=== PATIENT | female | born 1980 | race Caucasian/White ===

== ENCOUNTER 2016-07-07 15:04 | Outpatient (CLI) | payer MEDICAID ==
[~2016-07-07] VITALS: Ht 157.5 cm; Wt 77.8 kg
[~2016-07-07 15:04] MED LIST: CA C1TAB60 PO; FERR140T2 PO; PREN1TAB17 PO
[2016-07-07 15:19] VITALS: BP 120/58; PULSE 71; RESP 19; Ht 157.5 cm; Wt 77.8 kg
--- NOTE | 2016-07-07 16:31 | RADRPT ---
PROCEDURE: US OB biophysical profile. CLINICAL INDICATION: decreased movements, vaginal pressure TECHNIQUE: Multiple sonographic images of the pelvis were obtained. The images were reviewed on a PACS workstation. COMPARISON: No prior studies are available for comparison. FINDINGS: There is a single viable intrauterine gestation. Cardiac activity is present with 126 beats per min [place]. There is a vertex presentation. The placenta is fundal. There is no evidence of placental abruption. There is a normal amount of amniotic fluid with an POLO = 13.8 cm. Biophysical profile: movement 2/2 tone 2/2. breathing 2/2 POLO 2/2 Total 10/25 RPTAT: AA . IMPRESSION: Normal biophysical profile. . .Steven Chisholm MD, Date Time Electronically viewed and signed by .Steven Chisholm MD, MD on 07/07/2016 16:31 .S/
--- NOTE | 2016-07-07 16:58 | CONS ---
Date/Time of Note Date/Time of Note DATE: 07/07/16 TIME: 16:50 Consultation Date/Type/Reason Admit Date/Time July 07, 2069 OB triage consult Reason for Consultation This patient is 36 years old 15 para 11 leaving 10 ,premature delivery 1 2 ,with EDC of 07/28/2016 which today makes her 37 weeks . She came to triage area complaining of a pelvic pain, pressure and cramping . she had a history of placenta previa with previous .Her lab tests in the clinic were basically within normal limites: blood type O+, hepatitis B surface antigen and HIV ,RPR, GBS chlamydia and gonorrhea gonorrhea all were negative rubella was positive .She is now on her vitamins and calcium She is a well-developed well-nourished somewhat overweight woman, near term.Her vital signs are normal blood pressure 120/58 pulse rate 71 respiration 18 her Abdomen is soft extremely rare contractions On pelvic examination her cervix is closed long head is high no evidence of rupture of membranes. on the studies that was done her NST is reactive with good variability of the tracing and repeated accelerations no decelerations On ultrasound study the report is , one single viable intrauterine gestation with cardiac heart heartbeat of 126. Fetus is in vertex presentation placenta is fundal no evidence of placenta previa or abruption her biophysical profile was 8/8. POLO of 13.8 cm Constitutional: No chills, No diaphoresis, No disoriented, No febrile, No improved, No no complaints, No other, No poor po, No requiring IVF, No requiring O2 ENT: No bleeding, No congestion, No discharge, No dysphagia, No no complaints, No other, No pain, No sore throat Respiratory: No cough, No no complaints, No other, No pain, No pleuritic pain, No shortness of breath, No sputum, No wheezing Cardiovascular: No chest pain, No edema, No lightheadedness, No no complaints, No orthopenea, No other, No palpitations, No paroxysmal nocturnal dyspnea Gastrointestinal: No blood, No constipation, No decreased appetite, No diarrhea , No flatus, No nausea, No no complaints, No other, No pain, No passing stool, No vomiting Genitourinary: other (As I mentioned on pelvic examination the cervix was closed thick and [place] no evidence of rupture membrane), No bleeding, No discharge, No dysuria, No flank pain, No hematuria, No no complaints Musculoskeletal: No back pain, No bone/joint pain, No neck pain, No no complaints, No other, No restricted range of motion, No swelling Skin: No bruising, No erythema, No laceration, No no complaints, No other, No pruritis, No rash, No skin lesions Lymphatic: No adenopathy, No lymphadema, No no complaints, No other, No tender nodes Psychological: No anxiety, No confusion, No depression, No nl mood/affect, No no complaints, No other, No suicidal Immunologic: No immunodeficiency, No no complaints, No other, No pruritis, No rhinitis, No urticaria Additional Comments Disposition with these finding patient was reassured and was discharged home to be followed in the clinic Social History Smoking Status: Never smoker Exam/Review of Systems Vital Signs Vitals Vital Signs Date Time Temp Pulse Resp B/P Pulse Ox O2 Delivery O2 Flow Rate FiO2 07/07/16 15:19 98.0 71 19 120/58 99 Room Air CHAR LAO MD Jul 07, 2016 16:58
--- NOTE | 2016-07-07 17:04 | TRIAGE ---
OB Triage Datetime Report Generated by CPN: 07/07/2016 17:04 Datetime: 07/07/2016 16:58 Stage of : OB Triage Maternal Assessment Level of Consciousness: Fully Conscious DTR's/Clonus: DTRs 1+ Headache: Denies Breath Sounds, Left: Clear and Equal Breath Sounds, Right: Clear and Equal Nausea/Vomiting: Denies RUQ Epigastric Pain: Denies Labor Evaluation Frequency: X1 Monitor Mode: External Quality: Mild Pattern: Normal: <= 5 Contractions in 10 Minutes Resting Tone [place]: Relaxed Heart Rate FHR Baseline Rate: 135 Monitor Mode: External US Variability: Moderate 6-25 bpm Accelerations: 15X15 Decelerations: None Pain Assessment Pain Scale: 0 Pain Presence: None/Denies Pain Type: N/A Pain Goal: 3 Vaginal Exam Membrane Status: Intact Datetime: 07/07/2016 16:09 Maternal Assessment Level of Consciousness: Fully Conscious DTR's/Clonus: DTRs 1+ Headache: Denies Breath Sounds, Left: Clear and Equal Breath Sounds, Right: Clear and Equal Nausea/Vomiting: Denies RUQ Epigastric Pain: Denies Labor Evaluation Frequency: X1 Monitor Mode: External Quality: Mild Pattern: Normal: <= 5 Contractions in 10 Minutes Resting Tone [place]: Relaxed Heart Rate FHR Baseline Rate: 135 Monitor Mode: External US Variability: Moderate 6-25 bpm Accelerations: 15X15 Decelerations: None Category: Category I Pain Assessment Pain Scale: 0 Pain Presence: None/Denies Pain Type: N/A Pain Goal: 3 Vaginal Exam Membrane Status: Intact Datetime: 07/07/2016 15:29 Maternal Assessment Level of Consciousness: Fully Conscious DTR's/Clonus: DTRs 1+ Headache: Denies Blurred Vision: No Respiratory Effort: Unlabored Breath Sounds, Left: Clear and Equal Breath Sounds, Right: Clear and Equal Nausea/Vomiting: Denies RUQ Epigastric Pain: Denies Facial Edema: None Labor Evaluation Frequency: X2 Monitor Mode: External Duration (sec)2399: 50-70 Quality: Mild Pattern: Normal: <= 5 Contractions in 10 Minutes Resting Tone [place]: Relaxed Heart Rate FHR Baseline Rate: 135 Monitor Mode: External US Variability: Moderate 6-25 bpm Accelerations: 15X15 Decelerations: None Category: Category I Pain Assessment Pain Scale: 0 Pain Presence: None/Denies Pain Type: N/A Pain Goal: 3 Vaginal Exam Membrane Status: Intact Datetime: 07/07/2016 15:24 EGA: 37.0 Datetime: 07/07/2016 15:20 Stage of : OB Triage Datetime: 07/07/2016 15:15 Assessment Type: Triage Maternal Assessment Level of Consciousness: Fully Conscious DTR's/Clonus: DTRs 2+; No Clonus Headache: Denies Blurred Vision: No Respiratory Effort: Unlabored; Regular Rhythm; Equal Expansion Breath Sounds, Left: Clear and Equal Breath Sounds, Right: Clear and Equal Nausea/Vomiting: Denies RUQ Epigastric Pain: Denies Lower Extremities Edema: None Degree: None Upper Extremities Edema: None Degree: None Facial Edema: None Fall Risk Assessment History of Falling: (0) No Secondary Diagnosis: (0) No Ambulatory Aid: (0) Bedrest/Nurse Assist IV Therapy: (0) No Gait: (0) Normal/Bedrest/Immobile Mental Status: (0) Oriented to Own Ability Fall Score: 0 Fall Risk Score Definition: No Risk: No action required Datetime: 07/07/2016 15:09 Stage of : OB Triage Time of Arrival: 07/07/2016 15:09 Arrived By: Ambulatory Arrived From: Home Chief Complaint: PT CAME IN C/O VAGINAL PRESSURE AND CRAMPING SINCE THIS AFTERNOON. DENIES ANY BLE EDING AT THIS TIME AND STATES + FM. PT ASO STATES THAT SHE HAS A LOW LYING PLACENTA THAT ACCORDING T O HER IT HAS BEEN RESOLVED. Movement: Present Contractions: Denies/Absent Rupture of Membranes: Denies Vaginal Bleeding: None Vaginal Discharge: Denies Recent Sexual Intercouse: Denies Abdominal Trauma: Not Applicable Patient Complaints: Cramping Additional Patient Complaints: NONE Time Provider Notified: 07/07/2016 15:20 Provider Notified: TASHIA Initial Plan: NST AND BPP AFTER U/S VE
== END 2016-07-07 17:00 | disposition home or self-care (01) ==
LOC: L-D 15:04 → OBT 15:04
PROVIDERS: ATTEND Obstetrics & Gynecology
DX: O26.893 Other specified pregnancy related conditions, third trimester (principal); O09.523 Supervision of elderly multigravida, third trimester; Z3A.37 37 weeks gestation of pregnancy; E66.3 Overweight; Z68.31 Body mass index [BMI] 31.0-31.9, adult; O09.293 Supervision of pregnancy with other poor reproductive or obstetric history, third trimester; O36.8130 Decreased fetal movements, third trimester, not applicable or unspecified
CPT/HCPCS: 76818; Z7500; G0463

== ENCOUNTER 2016-07-12 09:04 | Outpatient (CLI) | payer MEDICAID ==
[~2016-07-12] VITALS: Ht 157.5 cm; Wt 78.8 kg
[2016-07-12 09:29] VITALS: BP 105/59; PULSE 63; RESP 18; Ht 157.5 cm; Wt 78.8 kg
[2016-07-12] MEDS ORDERED: LACTATED RINGER'S 1,000 ML IV SCH (10:04)
--- NOTE | 2016-07-12 11:56 | TRIAGE ---
OB Triage Datetime Report Generated by CPN: 07/12/2016 11:56 Datetime: 07/12/2016 11:46 Vaginal Exam Dilatation (cms): 1.0 Effacement (%): 60 Station: -3 Exam By: byron shaw Vaginal Bleeding: None Cervix, Consistency: Moderate Cervix, Position: Posterior Datetime: 07/12/2016 11:30 Stage of : OB Triage Maternal Assessment Level of Consciousness: Fully Conscious Labor Evaluation Frequency: 4-9 Monitor Mode: External Duration (sec)2399: 60-100 Quality: Mild Resting Tone [place] [address]: Relaxed Heart Rate FHR Baseline Rate: 135 Monitor Mode: External US Variability: Moderate 6-25 bpm Accelerations: 15X15 Decelerations: None Pain Assessment Pain Scale: 5 Pain Presence: Intermittent Pain Type: Cramping Pain Location: Abdomen Pain Goal: 3 Pain Relief Measures: Comfort Measures Membrane Status: Intact Vaginal Bleeding: None Datetime: 07/12/2016 11:00 Stage of : OB Triage Maternal Assessment Level of Consciousness: Fully Conscious Labor Evaluation Frequency: 2-7 Monitor Mode: External Duration (sec)2399: 60-130 Quality: Mild Resting Tone [address]: Relaxed Heart Rate FHR Baseline Rate: 135 Monitor Mode: External US Variability: Moderate 6-25 bpm Accelerations: 15X15 Decelerations: None Pain Assessment Pain Scale: 5 Pain Presence: Intermittent Pain Type: Cramping Pain Location: Abdomen Pain Goal: 3 Pain Relief Measures: Comfort Measures Membrane Status: Intact Vaginal Bleeding: None Datetime: 07/12/2016 10:00 Stage of : OB Triage Maternal Assessment Level of Consciousness: Fully Conscious Labor Evaluation Frequency: IRREGULAR Monitor Mode: External Duration (sec)2399: 60-130 Quality: Mild Resting Tone [address]: Relaxed Heart Rate FHR Baseline Rate: 135 Monitor Mode: External US Variability: Moderate 6-25 bpm Accelerations: 15X15 Decelerations: None Pain Assessment Pain Scale: 5 Pain Presence: Intermittent Pain Type: Cramping Pain Location: Abdomen Pain Goal: 3 Pain Relief Measures: Comfort Measures Membrane Status: Intact Vaginal Bleeding: None Datetime: 07/12/2016 09:36 Vaginal Exam Dilatation (cms): 1.0 Effacement (%): 60 Station: -3 Exam By: pavan Vaginal Bleeding: None Cervix, Consistency: Moderate Cervix, Position: Posterior Datetime: 07/12/2016 09:25 Assessment Type: Triage Maternal Assessment Level of Consciousness: Fully Conscious DTR's/Clonus: DTRs 2+; No Clonus Headache: Denies Blurred Vision: No Respiratory Effort: Unlabored; Regular Rhythm; Equal Expansion Breath Sounds, Left: Clear and Equal Breath Sounds, Right: Clear and Equal Nausea/Vomiting: Denies RUQ Epigastric Pain: Denies Lower Extremities Edema: None Degree: None Upper Extremities Edema: None Degree: None Facial Edema: None Fall Risk Assessment History of Falling: (0) No Secondary Diagnosis: (0) No Ambulatory Aid: (0) Bedrest/Nurse Assist IV Therapy: (0) No Gait: (0) Normal/Bedrest/Immobile Mental Status: (0) Oriented to Own Ability Fall Score: 0 Fall Risk Score Definition: No Risk: No action required Datetime: 07/12/2016 09:20 Time of Arrival: 07/12/2016 08:59 EGA: 37.5 Arrived By: Ambulatory Arrived From: Home Chief Complaint: C/O UC'S SINCE 399 Movement: Present Contractions: Irregular Rupture of Membranes: Denies Vaginal Bleeding: None Vaginal Discharge: Denies Recent Sexual Intercouse: Denies Abdominal Trauma: Not Applicable Patient Complaints: Contractions; Cramping Time Provider Notified: 07/12/2016 10:01 Provider Notified: [facility] Initial Plan: EFM, IV HYDRATION, SVE Datetime: 07/12/2016 09:10 Monitor Mode: External Monitor Mode: External US Datetime: 07/07/2016 15:24 EGA: 37.0 Datetime: 07/07/2016 15:15 Fall Score: 0 Fall Risk Score Definition: No Risk: No action required
--- NOTE | 2016-10-06 18:19 | PN ---
Triage Information Date/Time 07/12/16 Weeks of Gestation 37 : 15 Para: 11 Assessment/Plan VAGINAL PAIN JUAN PAEZ MD Oct 06, 2016 18:19
== END 2016-07-12 12:10 | disposition home or self-care (01) ==
LOC: OBT 09:04 → L-D 09:05 → OBT 12:10
PROVIDERS: ATTEND Obstetrics & Gynecology
DX: O26.893 Other specified pregnancy related conditions, third trimester (principal); O62.9 Abnormality of forces of labor, unspecified; Z3A.37 37 weeks gestation of pregnancy
CPT/HCPCS: 36415; 96360; J7120; Z7500; G0463

== ENCOUNTER 2016-07-19 14:25 | Outpatient (CLI) | payer MEDICAID ==
[~2016-07-19] VITALS: Ht 157.5 cm; Wt 78.8 kg
[2016-07-19 14:32] VITALS: Ht 157.5 cm; Wt 78.8 kg
--- NOTE | 2016-07-19 16:11 | RADRPT ---
PROCEDURE: Obstetrical ultrasound. CLINICAL INDICATION: , evaluation. Pelvic pain. Contractions TECHNIQUE: Transabdominal sonographic images of the pelvis are obtained. COMPARISON: 07/07/2016 FINDINGS: Single intrauterine gestation. There is a cephalic presentation. Measurements were made in order to determine age. The results are as follows: BPD = 9.23 cm HC = 33.37 cm AC = 34.92 cm FL = 7.56 cm Heart rate = 152 beats per minute The placenta is fundal. There is no evidence for an abruption or placenta previa. Ovaries are not visualized. IMPRESSION: Single intrauterine gestation of approximately 38 weeks 2 days by ultrasound criteria. [place] estimated weight = 3523 g; 63 percentile for gestational age of 38 weeks 5 days. RPTAT: AADD .Benjy Land MD, MD Date Time Electronically viewed and signed by .Benjy Land MD, MD on 07/19/2016 16:10 .B/
--- NOTE | 2016-07-19 16:11 | RADRPT ---
PROCEDURE: OB ultrasound for biophysical profile CLINICAL INDICATION: Biophysical profile. . TECHNIQUE: Multiple sonographic images of the pelvis were obtained. Transabdominal views are obta ined. COMPARISON: 07/07/2016 FINDINGS: Single intrauterine gestation. Presentation: Cephalic. Placenta: Fundal No evidence of placental abruption. No evidence of placenta previa. breathing movement = 2/2 tone = 2/2 motion = 2/2 POLO = 2/2 POLO = 9.5 cm; previously 13.7 cm heart rate: 135 beats per minute IMPRESSION: Single intrauterine gestation. Biophysical profile 10/25 RPTAT: AADD .Benjy Land MD, MD Date Time Electronically viewed and signed by .Benjy Land MD, on 07/19/2016 16:10 .B/
--- NOTE | 2016-07-19 16:26 | TRIAGE ---
OB Triage Datetime Report Generated by CPN: 07/19/2016 16:26 Datetime: 07/19/2016 14:41 Labor Evaluation Frequency: 2-4 Monitor Mode: External Duration (sec)2399: 50-80 Quality: Mild Pattern: Normal: <= 5 Contractions in 10 Minutes Resting Tone [place]: Relaxed Heart Rate FHR Baseline Rate: 130 Monitor Mode: External US FHR Baseline Changes: No Baseline Change Variability: Moderate 6-25 bpm Accelerations: 15X15 Decelerations: None Category: Category I Pain Assessment Pain Scale: 3 Pain Presence: Intermittent Pain Type: Cramping Pain Location: Abdomen Pain Relief Measures: Comfort Measures Datetime: 07/19/2016 14:39 Vaginal Exam Dilatation (cms): 1.0 Effacement (%): 60 Station: -3 Datetime: 07/19/2016 14:28 FHR Baseline Changes: No Baseline Change Datetime: 07/19/2016 14:15 Time of Arrival: 07/19/2016 14:15 EGA: 38.5 Arrived By: Ambulatory Arrived From: Home Chief Complaint: UC'S Movement: Present Contractions: Occasional Time Contractions Began: 07/19/2016 07:00 Rupture of Membranes: Denies Vaginal Bleeding: None Vaginal Discharge: Denies Recent Sexual Intercouse: Denies Abdominal Trauma: Not Applicable Patient Complaints: Contractions Time Provider Notified: 07/19/2016 14:50 Provider Notified: JEANNINE Initial Plan: BPP, EFW Datetime: 07/12/2016 09:25 Fall Risk Assessment Fall Score: 0 Fall Risk Score Definition: No Risk: No action required Datetime: 07/12/2016 09:20 EGA: 37.5 Datetime: 07/07/2016 15:24 EGA: 37.0 Datetime: 07/07/2016 15:15 Fall Risk Assessment Fall Score: 0 Fall Risk Score Definition: No Risk: No action required
--- NOTE | 2016-10-06 18:23 | PN ---
Triage Information Date/Time 07/19/16 Weeks of Gestation 38 : 15 Para: 11 Assessment/Plan LABOR PAINS JUAN PAEZ MD Oct 06, 2016 18:23
== END 2016-07-19 16:25 | disposition home or self-care (01) ==
LOC: L-D 14:25 → OBT 14:25
PROVIDERS: ATTEND Obstetrics & Gynecology
DX: O62.9 Abnormality of forces of labor, unspecified (principal); Z3A.38 38 weeks gestation of pregnancy
CPT/HCPCS: 76815; 76818; Z7500; G0463

== ENCOUNTER 2016-07-21 09:22 | Outpatient (CLI) | payer MEDICAID ==
[~2016-07-21] VITALS: Ht 160 cm; Wt 78.0 kg
[~2016-07-21 09:22] MED LIST changes: -CA C1TAB60 PO; -FERR140T2 PO
[2016-07-21 09:47] VITALS: BP 119/58; PULSE 61; RESP 18; Ht 160 cm; Wt 78.0 kg
--- NOTE | 2016-07-21 15:09 | CONS ---
Date/Time of Note Date/Time of Note DATE: 07/21/16 TIME: 15:01 Consultation Date/Type/Reason Admit Date/Time July OB triage consult Reason for Consultation This patient is a 36 years old 15 para 11 living alone was estimated date of confinement is July 28, 2016 which makes her exactly 39 weeks today she came to the hospital due to contractions and requesting induction of labor . On general examination she does have infrequent contractions her vital signs are normal blood pressure 119/58 pulse rate 61 respiration 18 temperature 98.0 her contractions happening every 5-6 minutes she says the pain level is somewhere between 3-4 out of 10 on pelvic examination at 10:00 in the morning her cervix was 1 cm 60% effaced -2 station and membranes were intact On ultrasound study her biophysical profile was reported 10/25 her POLO 11.7 cm baby in cephalic presentation with fundal placenta grade 2 amniotic fluid index of 9.5 cm Constitutional: No chills, No diaphoresis, No disoriented, No febrile, No improved, No no complaints, No other, No poor po, No requiring IVF, No requiring O2 Eyes: No discharge, No no complaints, No other, No pain, No redness, No visual change ENT: No bleeding, No congestion, No discharge, No dysphagia, No no complaints, No other, No pain, No sore throat Respiratory: No cough, No no complaints, No other, No pain, No pleuritic pain, No shortness of breath, No sputum, No wheezing Cardiovascular: No chest pain, No edema, No lightheadedness, No no complaints, No orthopenea, No other, No palpitations, No paroxysmal nocturnal dyspnea Gastrointestinal: other (Cervix about 2 cm dilated 70% effaced -2 station intact membranes), No blood, No constipation, No decreased appetite, No diarrhea, No flatus, No nausea, No no complaints, No pain, No passing stool, No vomiting Genitourinary: No bleeding, No discharge, No dysuria, No flank pain, No hematuria, No no complaints, No other Musculoskeletal: No back pain, No bone/joint pain, No neck pain, No no complaints, No other, No restricted range of motion, No swelling Skin: No bruising, No erythema, No laceration, No no complaints, No other, No pruritis, No rash, No skin lesions Neurologic: No confusion, No dizziness, No focal-weakness, No headache, No no complaints, No other, No seizure, No syncope Endocrine: No dry skin, No no complaints, No other, No polydypsia, No polyuria , No temp intolerance Lymphatic: No adenopathy, No lymphadema, No no complaints, No other, No tender nodes Additional Comments Plan :we will admit her in the hospital and augmentation and delivery. Social History Smoking Status: Never smoker Exam/Review of Systems Vital Signs Vitals Vital Signs Date Time Temp Pulse Resp B/P Pulse Ox O2 Delivery O2 Flow Rate FiO2 07/21/16 09:47 98.0 61 18 119/58 Room Air CHAR LAO MD July 21, 2016 15:09
--- NOTE | 2016-07-21 16:52 | TRIAGE ---
OB Triage Datetime Report Generated by CPN: 07/21/2016 16:52 Datetime: 07/21/2016 15:00 Labor Evaluation Frequency: 3-4 Monitor Mode: External Duration (sec)2399: 70-80 Quality: Moderate Pattern: Normal: <= 5 Contractions in 10 Minutes Resting Tone [place]: Relaxed Heart Rate FHR Baseline Rate: 145 Monitor Mode: External US FHR Baseline Changes: No Baseline Change Variability: Moderate 6-25 bpm Accelerations: 15X15 Decelerations: None Category: Category I Pain Assessment Pain Scale: 3 Pain Presence: Intermittent Pain Type: Contraction Pain Location: Abdomen Datetime: 07/21/2016 14:31 Vaginal Exam Dilatation (cms): 1.5 Effacement (%): 70 Station: -2 Exam By: Dr Foroohar Datetime: 07/21/2016 11:45 Stage of : OB Triage Labor Evaluation Frequency: occ Monitor Mode: External Quality: Moderate Pattern: Normal: <= 5 Contractions in 10 Minutes Resting Tone [place]: Relaxed Heart Rate FHR Baseline Rate: 130 Monitor Mode: External US FHR Baseline Changes: No Baseline Change Variability: Moderate 6-25 bpm Accelerations: 15X15 Decelerations: None Category: Category II Pain Assessment Pain Scale: 4 Pain Presence: Intermittent Pain Type: Cramping Pain Location: Abdomen Pain Relief Measures: Comfort Measures Datetime: 07/21/2016 11:39 Heart Rate FHR Baseline Rate: 130 Datetime: 07/21/2016 11:03 Stage of : OB Triage Datetime: 07/21/2016 11:01 Stage of : OB Triage Monitor Mode: External Quality: Moderate Pattern: Normal: <= 5 Contractions in 10 Minutes Resting Tone [place]: Relaxed Heart Rate FHR Baseline Rate: 140 Monitor Mode: External US FHR Baseline Changes: No Baseline Change Variability: Moderate 6-25 bpm Accelerations: 15X15 Decelerations: None Category: Category I Pain Assessment Pain Scale: 4 Pain Presence: Intermittent Pain Type: Cramping Pain Location: Abdomen Pain Relief Measures: Comfort Measures Datetime: 07/21/2016 10:00 Labor Evaluation Frequency: occ Monitor Mode: External Duration (sec)2399: 60-80 Quality: Mild Pattern: Normal: <= 5 Contractions in 10 Minutes Resting Tone [place]: Relaxed Heart Rate FHR Baseline Rate: 135 Monitor Mode: External US FHR Baseline Changes: No Baseline Change Variability: Minimal - Undetectable to <=5 bpm Accelerations: None Decelerations: Early Category: Category II Datetime: 07/21/2016 09:51 Vaginal Exam Dilatation (cms): 1.0 Effacement (%): 60 Station: -2 Exam By: bjacobo Datetime: 07/21/2016 09:45 Assessment Type: Triage Maternal Assessment Level of Consciousness: Fully Conscious DTR's/Clonus: DTRs 2+; No Clonus Headache: Denies Blurred Vision: No Respiratory Effort: Unlabored; Regular Rhythm; Equal Expansion Breath Sounds, Left: Clear and Equal Breath Sounds, Right: Clear and Equal Nausea/Vomiting: Denies RUQ Epigastric Pain: Denies Lower Extremities Edema: None Upper Extremities Edema: None Facial Edema: None Fall Risk Assessment History of Falling: (0) No Secondary Diagnosis: (0) No Ambulatory Aid: (0) Bedrest/Nurse Assist IV Therapy: (0) No Gait: (0) Normal/Bedrest/Immobile Mental Status: (0) Oriented to Own Ability Fall Score: 0 Fall Risk Score Definition: No Risk: No action required Datetime: 07/21/2016 09:44 Time of Arrival: 07/21/2016 09:23 EGA: 39.0 Arrived By: Ambulatory Arrived From: Home Movement: Present Contractions: Irregular Contractions: 5-7 Rupture of Membranes: Denies Vaginal Bleeding: None Vaginal Discharge: Present Recent Sexual Intercouse: Denies Abdominal Trauma: Not Applicable Patient Complaints: Contractions; Cramping; Back Pain Time Provider Notified: 07/21/2016 09:35 Provider Notified: Zachery Initial Plan: EFM, UC monitoring, VE - Orders for POLO given Datetime: 07/19/2016 16:25 Arrived By: Ambulatory Arrived From: Home Movement: Present Vaginal Discharge: Present Recent Sexual Intercouse: Denies Datetime: 07/19/2016 16:06 Labor Evaluation Frequency: 3-6 Monitor Mode: External Duration (sec)2399: 50-70 Quality: Mild Pattern: Normal: <= 5 Contractions in 10 Minutes Resting Tone [place]: Relaxed Heart Rate FHR Baseline Rate: 130 Monitor Mode: External US FHR Baseline Changes: No Baseline Change Variability: Moderate 6-25 bpm Accelerations: 15X15 Decelerations: None Category: Category I Pain Assessment Pain Scale: 2 Pain Presence: Intermittent Pain Type: Cramping Pain Location: Abdomen Pain Relief Measures: Comfort Measures Datetime: 07/19/2016 14:15 EGA: 38.5 Datetime: 07/12/2016 09:25 Fall Score: 0 Fall Risk Score Definition: No Risk: No action required Datetime: 07/12/2016 09:20 EGA: 37.5 Datetime: 07/07/2016 15:24 EGA: 37.0 Datetime: 07/07/2016 15:15 Fall Score: 0 Fall Risk Score Definition: No Risk: No action required
--- NOTE | 2016-07-21 19:57 | RADRPT ---
PROCEDURE: OB ultrasound for biophysical profile CLINICAL INDICATION: Decreased movement. Minimal variability. TECHNIQUE: Multiple sonographic images of the pelvis were obtained. Transabdominal view of the gr avid uterus are available for review. The images were reviewed on a PACS workstation. COMPARISON: OB ultrasound 07/19/2016 FINDINGS: breathing movement = 2/2 tone = 2/2 motion = 2/2 POLO = 2/2 POLO = 11.8 cm Single live intrauterine with cardiac activity. heart rate equals 140 beats p er minute. Presentation is cephalic. The placenta is fundal, grade II. IMPRESSION: 1. Single viable intrauterine gestation. 2. Biophysical profile = 8/8. 3. POLO = 11.8 cm. RPTAT: KK .Caden Orellana MD, MD Date Time Electronically viewed and signed by .Caden Orellana MD, MD on 07/21/2016 16:11 .B/
== END 2016-07-21 16:50 | disposition home or self-care (01) ==
LOC: OBT 09:22 → L-D 09:23 → OBT 16:50
PROVIDERS: ATTEND Obstetrics & Gynecology
DX: O62.9 Abnormality of forces of labor, unspecified (principal); O36.8130 Decreased fetal movements, third trimester, not applicable or unspecified; O09.523 Supervision of elderly multigravida, third trimester; Z3A.39 39 weeks gestation of pregnancy
CPT/HCPCS: 76818; Z7500; G0463

== ENCOUNTER 2016-07-23 06:49 | Outpatient (CLI) | payer MEDICAID ==
[~2016-07-23] VITALS: Ht 157.5 cm; Wt 78.6 kg
[2016-07-23 07:15] VITALS: Ht 157.5 cm; Wt 78.6 kg
[2016-07-23 07:17] VITALS: BP 107/64; PULSE 69; RESP 18
--- NOTE | 2016-07-23 10:04 | QN ---
Documentation Comment 36 years old female 15 para 11 SAB 2 I gave seen at the triage unit to rule out labor after several hours of observation there was some mild contraction but no cervical change patient discharged home to the care of the clinic with labor instructions recommended to make an appointment with clinic on Monday ,advised if contractions become stronger and more regular she can return to the hospital. JUAN PAEZ MD July 23, 2016 10:04
== END 2016-07-23 09:55 | disposition home or self-care (01) ==
LOC: OBT 06:49 → L-D 06:49 → OBT 09:55
PROVIDERS: ATTEND Obstetrics & Gynecology
DX: O62.9 Abnormality of forces of labor, unspecified (principal); O09.523 Supervision of elderly multigravida, third trimester; Z3A.39 39 weeks gestation of pregnancy
CPT/HCPCS: G0463

== ENCOUNTER 2016-07-24 03:09 | Inpatient (IN) | payer MEDICAID ==
[~2016-07-24] VITALS: Ht 157.5 cm; Wt 78.8 kg
[2016-07-24 03:20] VITALS: Ht 157.5 cm; Wt 78.8 kg
[2016-07-24] MEDS ORDERED: OXYTOCIN 30 UNITS/LR 500 ML IV SCH ×2 (03:30)
[2016-07-24] MEDS ORDERED: CARBOPROST 250 MCG INJ IM PRN (03:30)
[2016-07-24] MEDS ORDERED: METHYLERGONOVINE 0.2 MG INJ IM PRN (03:30)
[2016-07-24] MEDS ORDERED: BUTORPHANOL 2 MG INJ IV PRN (03:30)
[2016-07-24] MEDS ORDERED: OXYTOCIN 30 UNITS/LR 500 ML IV PRN (03:30)
[2016-07-24] MEDS ORDERED: MISOPROSTOL 200 MCG TAB PR PRN (03:30)
[2016-07-24] MEDS ORDERED: LIDOCAINE 1% (MPF) 30 ML INJ INJ PRN (03:30)
--- NOTE | 2016-07-24 03:56 | TRIAGE ---
OB Triage Datetime Report Generated by CPN: 07/24/2016 03:56 Datetime: 07/24/2016 03:37 Stage of : OB Triage Temperature Route: Oral Labor Evaluation Frequency: 5-9 Monitor Mode: External Duration (sec)2399: 80-120 Quality: Moderate Pattern: Normal: <= 5 Contractions in 10 Minutes Resting Tone [place]: Relaxed Heart Rate FHR Baseline Rate: 140 Monitor Mode: External US Variability: Moderate 6-25 bpm Accelerations: 15X15 Decelerations: Variable Category: Category II Pain Assessment Pain Scale: 8 Pain Presence: Intermittent Pain Type: Cramping; Contraction; Stabbing Pain Location: Abdomen; Back Pain Relief Measures: Comfort Measures Datetime: 07/24/2016 03:25 Arrived By: Ambulatory Arrived From: Home Chief Complaint: CXS SINCE 1800 Movement: Present Contractions: Regular Time Contractions Began: 07/23/2016 18:00 Contractions: Q 10 MIN Rupture of Membranes: Denies Vaginal Discharge: Denies Patient Complaints: Contractions Time Provider Notified: 07/24/2016 03:25 Provider Notified: REGAMAL Initial Plan: EFM, ASSESSMENT, CALL MD FOR ORDERS Datetime: 07/24/2016 03:22 Vaginal Exam Dilatation (cms): 5.0 Effacement (%): 80 Station: -2 Exam By: LISBET Vaginal Bleeding: None Cervix, Consistency: Soft Cervix, Position: Posterior Presentation 'A': Cephalic Datetime: 07/24/2016 03:20 Assessment Type: Triage Maternal Assessment Level of Consciousness: Fully Conscious DTR's/Clonus: DTRs 2+; No Clonus Headache: Denies Blurred Vision: No Respiratory Effort: Unlabored; Regular Rhythm; Equal Expansion Breath Sounds, Left: Clear and Equal Breath Sounds, Right: Clear and Equal Nausea/Vomiting: Denies RUQ Epigastric Pain: Denies Lower Extremities Edema: None Upper Extremities Edema: None Facial Edema: None Fall Risk Assessment History of Falling: (0) No Secondary Diagnosis: (0) No Ambulatory Aid: (0) Bedrest/Nurse Assist IV Therapy: (0) No Gait: (0) Normal/Bedrest/Immobile Mental Status: (0) Oriented to Own Ability Fall Score: 0 Fall Risk Score Definition: No Risk: No action required Datetime: 07/23/2016 09:46 Stage of : OB Triage Vaginal Exam Dilatation (cms): 1.0 Effacement (%): 50 Station: -2 Exam By: DR PAEZ Vaginal Bleeding: Scant Cervix, Consistency: Soft Cervix, Position: Posterior Presentation 'A': Cephalic Datetime: 07/23/2016 09:18 Vaginal Exam Dilatation (cms): 1.5 Effacement (%): 80 Station: -2 Exam By: Ibrahima PAREDES Vaginal Bleeding: Scant Cervix, Consistency: Soft Cervix, Position: Posterior Presentation 'A': Cephalic Datetime: 07/23/2016 09:13 Labor Evaluation Frequency: 3-4 Monitor Mode: External Duration (sec)2399: 50-70 Quality: Mild Resting Tone [place]: Relaxed Heart Rate FHR Baseline Rate: 125 Monitor Mode: External US Variability: Moderate 6-25 bpm Accelerations: 10X10 Decelerations: None Category: Category I Pain Assessment Pain Scale: 6 Pain Presence: Intermittent Pain Type: Cramping Pain Location: Abdomen; Perineum Pain Goal: 3 Pain Relief Measures: Comfort Measures Datetime: 07/23/2016 08:21 Labor Evaluation Frequency: 3-4 Monitor Mode: External Duration (sec)2399: 50-70 Pattern: Normal: <= 5 Contractions in 10 Minutes Resting Tone [place]: Relaxed Heart Rate FHR Baseline Rate: 135 Monitor Mode: External US Variability: Moderate 6-25 bpm Accelerations: 10X10 Decelerations: None Category: Category I Pain Assessment Pain Scale: 6 Pain Presence: Intermittent Pain Type: Cramping Pain Location: Abdomen Pain Goal: 3 Pain Relief Measures: Comfort Measures Datetime: 07/23/2016 07:58 Stage of : OB Triage Datetime: 07/23/2016 07:21 Labor Evaluation Frequency: 4-5 Monitor Mode: External Duration (sec)2399: 70-90 Quality: Mild Pattern: Normal: <= 5 Contractions in 10 Minutes Resting Tone [place]: Relaxed Heart Rate FHR Baseline Rate: 135 Monitor Mode: External US Variability: Moderate 6-25 bpm Decelerations: None Category: Category II Pain Assessment Pain Scale: 4 Pain Presence: Intermittent Pain Type: Cramping Pain Location: Abdomen Pain Goal: 3 Pain Relief Measures: Comfort Measures Datetime: 07/23/2016 07:08 Time of Arrival: 07/23/2016 06:40 EGA: 39.2 Arrived By: Ambulatory Arrived From: Home Chief Complaint: Pressure, UC's Movement: Present Rupture of Membranes: Denies Vaginal Bleeding: None Vaginal Discharge: Denies Recent Sexual Intercouse: Denies Abdominal Trauma: Not Applicable Patient Complaints: Contractions Time Provider Notified: 07/23/2016 07:50 Provider Notified: JEANNINE Initial Plan: EFM X2, SVE Vaginal Exam Dilatation (cms): 1.5 Effacement (%): 70 Station: -2 Exam By: Evan Best RN Vaginal Bleeding: None Cervix, Consistency: Soft Cervix, Position: Posterior Presentation 'A': Cephalic Datetime: 07/23/2016 07:04 Assessment Type: Triage Maternal Assessment Level of Consciousness: Fully Conscious DTR's/Clonus: DTRs 2+; No Clonus Headache: Denies Blurred Vision: No Respiratory Effort: Unlabored; Regular Rhythm; Equal Expansion Breath Sounds, Left: Clear and Equal Breath Sounds, Right: Clear and Equal Nausea/Vomiting: Denies RUQ Epigastric Pain: Denies Lower Extremities Edema: None Degree: None Upper Extremities Edema: None Degree: None Facial Edema: None Fall Risk Assessment History of Falling: (0) No Secondary Diagnosis: (0) No Ambulatory Aid: (0) Bedrest/Nurse Assist IV Therapy: (0) No Gait: (0) Normal/Bedrest/Immobile Mental Status: (0) Oriented to Own Ability Fall Score: 0 Fall Risk Score Definition: No Risk: No action required Datetime: 07/21/2016 09:45 Fall Score: 0 Fall Risk Score Definition: No Risk: No action required Datetime: 07/21/2016 09:44 EGA: 39.0 Datetime: 07/19/2016 14:15 EGA: 38.5 Datetime: 07/12/2016 09:25 Fall Score: 0 Fall Risk Score Definition: No Risk: No action required Datetime: 07/12/2016 09:20 EGA: 37.5 Datetime: 07/07/2016 15:24 EGA: 37.0 Datetime: 07/07/2016 15:15 Fall Score: 0 Fall Risk Score Definition: No Risk: No action required
[2016-07-24] MEDS ORDERED: LACTATED RINGER'S 1,000 ML IV PRN (04:00)
[2016-07-24 04:02] LABS: ADD SCAN DIFF NO
[2016-07-24] MEDS ORDERED: FENTAnyl 2MCG/ML-ROPIV 0.2% 100 ML ONE (04:18)
[2016-07-24 04:20] LABS: BASOPHILS % 0.2 % (0.0-2.0); EOSINOPHILS # 0.1 10^3/ul (0.0-0.5); EOSINOPHILS % 0.7 % (0.0-7.0); HEMATOCRIT 38.1 % (37.0-47.0); HEMOGLOBIN 12.9 g/dl (12.0-16.0); LYMPHOCYTES # 1.7 10^3/ul (0.8-2.9); LYMPHOCYTES % 19.3 % (15.0-51.0); MEAN CORPUSCULAR HEMOGLOBIN 31.9 pg (29.0-33.0); MEAN CORPUSCULAR HGB CONC 33.9 g/dl (32.0-37.0); MEAN CORPUSCULAR VOLUME 94.1 fl (82.0-101.0); MEAN PLATELET VOLUME 11.8 fl (7.4-10.4); MONOCYTE # 0.5 10^3/ul (0.3-0.9); MONOCYTES % 5.8 % (0.0-11.0); NEUTROPHIL # 6.6 10^3/ul (1.6-7.5); NEUTROPHILS % 73.2 % (39.0-77.0); PLATELET COUNT 150 10^3/UL (140-415); RED BLOOD COUNT 4.05 10^6/ul (4.20-5.40); RED CELL DISTRIBUTION WIDTH 12.8 % (11.5-14.5)
[2016-07-24] MEDS: LACTATED RINGER'S 1,000 ML IV SCH ×3 (04:36→07:05)
[2016-07-24 04:43] LABS: INR 0.88; PROTIME 11.9 Sec (12.2-14.2); PT RATIO 0.9
[2016-07-24 04:44] LABS: PARTIAL THROMBOPLASTIN TIME 26.1 Sec (25.0-35.0)
[2016-07-24] MEDS ORDERED: ONDANSETRON 4 MG INJ IV STA (06:00)
[2016-07-24] MEDS ORDERED: DIPHENHYDRAMINE 50 MG INJ IV PRN ×2 (07:30→12:30)
[2016-07-24] MEDS ORDERED: ONDANSETRON 4 MG INJ IV PRN ×2 (07:30→10:00)
[2016-07-24] MEDS ORDERED: NALOXONE (0.4 MG/ML) INJ IV PRN (07:30)
[2016-07-24] MEDS ORDERED: FENTAnyl 2MCG/ML-ROPIV 0.2% 100 ML BAG EPI SCH (07:30)
--- NOTE | 2016-07-24 08:24 | LDN ---
Date/Time of Note Date/Time of Note DATE: 07/24/16 TIME: 08:19 Delivery Summary Normal spontaneous vaginal delivery of a baby girl from TEMO position shoulders delivered without any difficulties rest of the baby's body followed cord clamped after stopped pulsation placenta spontaneous expulsion inspected complete blood loss 200 mL peritoneal vaginal inspection no laceration Weeks of Gestation 39 weeks 4 days Placenta Delivered: Spontaneously Meconium: none Episiotomy: No Estimated blood loss: 200 Sponge & Needle done & correct: Yes All needle counts correct: Yes Any foreign bodies felt in the: No Problems: Infant Delivery Information Sex Sex: female Apgars 1 Minute: 8 5 Minute: 9 Suctioning Nose & mouth suctioned at leeroy: Yes Delee suction performed: No Umbilical Cord Umbilical cord with: 3 Vessels Cord presentations: nuchal cord Cord Blood was obtained: Yes JUAN PAEZ MD July 24, 2016 08:24
--- NOTE | 2016-07-24 08:35 | HP ---
Date/Time of Note Date/Time of Note DATE: 07/24/16 TIME: 08:24 OB - History Hx of Present Free Text/Dictation 36 years old female G 15 P 11 T10 P1 SAB to I-A 1L 11 admitted to [facility] in active labor on admission pelvic examination cervical dilatation 3-4 cm and 90% effaced vertex at -1 station contraction 3-5 minutes Chief Complaint: Labor contraction Estimated Due Date: July 28, 2016 : 15 Para: 11 Spontaneous : 1 Therapeutic : 2 Care: Good Care Ultrasounds: Normal mid trimester US Obstetrical Complications: None Medical Complications: None Past Family/Social History * Past Medical, Surgical, Family and Obstetric Histories reviewed from chart. Rubella: immune RPR/VDRL: Negative GBS Status: Negative HBsAG: Negative OB Admission Exam Physical Exam HEENT: WNL Heart: Rhythm Normal Lungs: Clear, Equal Extremities: Normal Reflexes: Normal Cervical Dilatation: None Effacement: Other (90%) Station: -1 Membranes: Intact Heart Rate: 130's Accelerations: Accelerations Present Decelerations: No Decelerations Varibility: Moderate Contractions on Admission: < 5 Minutes Apart Intensity: Moderate Last 72 hours Lab Results CBC & BMP 07/24/16 03:30 OB Assessment/Plan Reason for admission: other (Expecting management for normal vaginal delivery) Plan: Expectant Management JUAN PAEZ MD July 24, 2016 08:35
[2016-07-24] MEDS ORDERED: DIBUCAINE 1% 30 GM OINT PR PRN (10:00)
[2016-07-24] MEDS ORDERED: OXYCODONE/ASPIRIN (4.88/325) TAB PO PRN ×2 (10:00)
[2016-07-24] MEDS ORDERED: BENZOCAINE 20% 56 ML SPRAY TOP PRN (10:00)
[2016-07-24] MEDS ORDERED: LANOLIN 7 GM TUBE TOP PRN (10:00)
[2016-07-24] MEDS ORDERED: ACETAMINOPHEN/CODEINE #3 TAB PO PRN ×2 (10:00)
[2016-07-24] MEDS ORDERED: WITCH HAZEL/GLYCERIN PAD PR PRN (10:00)
[2016-07-24] MEDS ORDERED: ACETAMINOPHEN 325 MG TAB PO PRN (10:00)
[2016-07-24] MEDS: OXYTOCIN 30 UNITS/LR 500 ML IV SCH ×2 (10:06→12:20)
[2016-07-24 10:20] VITALS: BP 106/69; PULSE 59; RESP 18
[2016-07-24] MEDS: IBUPROFEN 600 MG TAB PO SCH ×2 (11:33→18:10)
[2016-07-24 16:00] VITALS: BP_SYST 104; BP_SYST 129; BP_DIAS 57; BP_DIAS 75; PULSE 57; PULSE 69; RESP 18
[2016-07-24 19:50] VITALS: BP 105/51; PULSE 59; RESP 18
[2016-07-24] MEDS: SENNA/DOCUSATE NA (8.6MG/50MG) TAB PO SCH (21:14)
[2016-07-25] VITALS: BP 112/55; PULSE 60; RESP 18
[2016-07-25] MEDS: IBUPROFEN 600 MG TAB PO SCH ×5 (00:17→23:36)
[2016-07-25 04:10] VITALS: BP 110/53; PULSE 62; RESP 18
[2016-07-25 07:14] LABS: ADD SCAN DIFF NO
[2016-07-25 07:17] LABS: BASOPHILS % 0.2 % (0.0-2.0); EOSINOPHILS # 0.1 10^3/ul (0.0-0.5); EOSINOPHILS % 0.7 % (0.0-7.0); HEMATOCRIT 40.2 % (37.0-47.0); HEMOGLOBIN 13.1 g/dl (12.0-16.0); LYMPHOCYTES # 1.9 10^3/ul (0.8-2.9); MEAN CORPUSCULAR HEMOGLOBIN 31.4 pg (29.0-33.0); MEAN CORPUSCULAR HGB CONC 32.6 g/dl (32.0-37.0); MEAN CORPUSCULAR VOLUME 96.4 fl (82.0-101.0); MEAN PLATELET VOLUME 11.9 fl (7.4-10.4); MONOCYTE # 0.6 10^3/ul (0.3-0.9); MONOCYTES % 5.7 % (0.0-11.0); NEUTROPHIL # 7.2 10^3/ul (1.6-7.5); NEUTROPHILS % 73.6 % (39.0-77.0); PLATELET COUNT 146 10^3/UL (140-415); RED BLOOD COUNT 4.17 10^6/ul (4.20-5.40); RED CELL DISTRIBUTION WIDTH 13.1 % (11.5-14.5); WHITE BLOOD COUNT 9.7 10^3/ul (4.8-10.8)
[2016-07-25 08:00] VITALS: BP 98/76; PULSE 68
[2016-07-25] MEDS: SENNA/DOCUSATE NA (8.6MG/50MG) TAB PO SCH ×2 (09:00→21:10)
[2016-07-25 16:00] VITALS: BP 126/55; PULSE 62; RESP 18
--- NOTE | 2016-07-25 16:53 | PN ---
Date/Time of Note Date/Time of Note DATE: 07/25/16 TIME: 16:52 OB Subjective Subjective Subjective Post normal vaginal delivery day 1 Afebrile vital signs stable abdomen soft uterus firm lochia normal extremity normal JUAN PAEZ MD July 25, 2016 16:53
[2016-07-25 19:55] VITALS: BP 113/51; PULSE 60; RESP 16
[2016-07-26 04:40] VITALS: BP 112/53; PULSE 59; RESP 18
[2016-07-26] MEDS: IBUPROFEN 600 MG TAB PO SCH ×2 (05:53→11:19)
[2016-07-26 07:50] VITALS: BP 104/56; PULSE 62; RESP 16
[2016-07-26] MEDS ORDERED: MEASLES,MUMPS,RUBELLA VACCINE INJ SC* ONE (09:00)
[2016-07-26] MEDS: SENNA/DOCUSATE NA (8.6MG/50MG) TAB PO SCH (09:02)
[2016-07-26 12:00] VITALS: BP 100/58; PULSE 66; RESP 16
--- NOTE | 2016-07-26 15:47 | DS ---
Date/Time of Note Date/Time of Note Current Medications Medications (Trade) Dose Ordered Sig/Ana Route PRN Reason Start Time Stop Time Status Last Admin Dose Admin Lactated Ringer's (Lr) 1,000 ml @ 125 mls/hr Q8H IV 07/24/16 03:25 07/24/16 09:59 DC 07/24/16 07:05 Butorphanol Tartrate (Stadol) 2 mg Q2H PRN IV PAIN 07/24/16 03:30 07/24/16 09:59 DC Lidocaine 30 ml 30 ml ONCE PRN INJ EPISIOTOMY/TEARING 07/24/16 03:30 07/24/16 09:59 DC Oxytocin/Lactated Ringer's 500 ml @ 125 mls/hr ONCE -MAY REPEAT X1 IV 07/24/16 03:30 07/24/16 09:59 DC 07/24/16 08:33 Oxytocin/Lactated Ringer's 500 ml @ 125 mls/hr ONCE IV 07/24/16 03:30 07/24/16 09:59 DC Lactated Ringer's 1,000 ml @ 2,000 mls/hr Q30M PRN IV PRE-EPIDURAL BOLUS 07/24/16 04:00 07/24/16 09:59 DC 07/24/16 03:38 Oxytocin/Lactated Ringer's 500 ml @ 0 mls/hr ONCE PRN IV For Hemorrhage Management 07/24/16 03:30 07/24/16 09:59 DC Methylergonovine Maleate (Methergine) 0.2 mg ONCE PRN IM VAGINAL BLEEDING 07/24/16 03:30 07/24/16 09:59 DC Carboprost Tromethamine (Hemabate) 250 mcg ONCE PRN IM VAGINAL BLEEDING 07/24/16 03:30 07/24/16 09:59 DC Misoprostol 1000 mcg 1,000 mcg ONCE PRN IN VAGINAL BLEEDING 07/24/16 03:30 07/24/16 09:59 DC Fentanyl/ Ropivacaine 100 ml @ ud STK-MED ONCE .ROUTE 07/24/16 04:18 07/24/16 04:19 DC Ondansetron HCl (Zofran Inj) 4 mg ONCE STAT IV 07/24/16 06:00 07/24/16 06:04 DC 07/24/16 06:19 Naloxone HCl (Narcan) 0.1 mg Q2M PRN IV FOR RESP RATE 8 OR LESS 07/24/16 07:30 07/24/16 09:59 DC Diphenhydramine HCl (Benadryl) 25 mg Q6H PRN IV ITCHING 07/24/16 07:30 07/24/16 09:59 DC Ondansetron HCl (Zofran Inj) 4 mg Q6H PRN IV NAUSEA AND/OR VOMITING 07/24/16 07:30 07/24/16 09:59 DC Fentanyl/ Ropivacaine 100 ml 100 ml EPIDURAL INFUSION EPI 07/24/16 07:30 07/24/16 09:59 DC Oxytocin/Lactated Ringer's 500 ml @ 125 mls/hr Q4H IV 07/24/16 09:56 07/24/16 17:55 DC 07/24/16 12:20 Ibuprofen (Motrin) 600 mg Q6 PO 07/24/16 12:00 07/26/16 11:19 Acetaminophen (Tylenol Tab) 650 mg Q4H PRN PO PAIN LEVEL 1-5 07/24/16 10:00 Acetaminophen/ Codeine Phosphate (Tylenol No.3) 1 tab Q4H PRN PO PAIN LEVEL 1-5 07/24/16 10:00 Acetaminophen/ Codeine Phosphate (Tylenol No.3) 2 tab Q4H PRN PO PAIN LEVEL 6-10 07/24/16 10:00 Oxycodone/Aspirin (Percodan) 1 tab Q3H PRN PO PAIN LEVEL 1-5 07/24/16 10:00 Oxycodone/Aspirin (Percodan) 2 tab Q3H PRN PO PAIN LEVEL 6-10 07/24/16 10:00 Ondansetron HCl (Zofran Inj) 4 mg Q6H PRN IV NAUSEA AND/OR VOMITING 07/24/16 10:00 Senna/Docusate Sodium (Senokot-S) 1 tab BID PO 07/24/16 21:00 07/26/16 09:02 Witch Shey/ Glycerin (Tucks Pads) 1 pad BEDSIDE MEDICATION PRN IN HEMORRHOID/EPISIOTMY PAIN 07/24/16 10:00 07/24/16 10:35 Benzocaine (Dermoplast Benezett) 1 spray BEDSIDE MEDICATION PRN TOP HEMORRHOID/EPISIOTMY PAIN 07/24/16 10:00 07/24/16 10:35 Dibucaine (Nupercainal) 1 applic BEDSIDE MEDICATION PRN IN HEMORRHOID/EPISIOTMY PAIN 07/24/16 10:00 07/24/16 10:36 Lanolin (Mvg-T-Lcpzeu) 1 applic BEDSIDE MEDICATION PRN TOP BEDSIDE FOR JOSE ALBERTO TO NIPPLES 07/24/16 10:00 07/24/16 10:36 Measles/Mumps/ Rubella Vaccine Live (Mmr Ii Vaccine) 0.5 ml ONCE ONCE SC* 07/26/16 09:00 07/26/16 09:01 DC Diphenhydramine HCl (Benadryl) 25 mg Q6H PRN IV ITCHING 07/24/16 12:30 07/24/16 12:39 DATE: 07/26/16 TIME: 15:44 Obstetrical Discharge Record Final Diagnosis Final Diagnosis: Term delivered Vaginal Delivery Obstetrical Delivery: Spontaneous Condition on Discharge Physical Assessment Voiding: Yes Bowel Movement: Yes Breast: Soft, non-tender Fundus: Firm Calf Tenderness: No Patient Condition: Good CHAR LAO MD July 26, 2016 15:47
== END 2016-07-26 19:05 | disposition home or self-care (01) | DRG 775 ==
LOC: OBT 03:09 → L-D 03:11 → OBT 03:33 → L-D 03:35 → PP1 10:23
PROVIDERS: ADMIT Obstetrics & Gynecology; ATTEND Obstetrics & Gynecology
PROC: 10E0XZZ Delivery of Products of Conception, External Approach (ICD-10-PCS; principal; 2016-07-24)
DX: O69.81X0 Labor and delivery complicated by cord around neck, without compression, not applicable or unspecified (principal); Z37.0 Single live birth; Z3A.39 39 weeks gestation of pregnancy
CPT/HCPCS: 36415; 62319; 85025; 85610; 85730; 86592; 86850; 86900; 86901; 86920; G0463; J1200; J2405; J2590; J3010; J7120